=== PATIENT | female | born 1985 | race Hispanic/Latino ===

== ENCOUNTER 2020-01-10 07:28 | Day surgery (SDC) | payer OTHER ==
[~2020-01-10] VITALS: Ht 157.5 cm; Wt 78.5 kg
[2020-01-10] MEDS ORDERED: LR 1,000 ML IV ONE (08:30)
[2020-01-10 08:35] LABS: HEMATOCRIT 32.2 % (36.0-47.0); HEMOGLOBIN 9.6 g/dl (12.0-15.5); MEAN CORPUSCULAR HEMOGLOBIN 21.6 pg (27.0-33.0); MEAN CORPUSCULAR HGB CONC 29.8 g/dl (32.0-36.5); MEAN CORPUSCULAR VOLUME 72.5 fl (80.0-96.0); PLATELET COUNT, AUTOMATED 450 10^3/uL (150-450); RED BLOOD COUNT 4.44 10^6/uL (4.00-5.40); WHITE BLOOD COUNT 10.5 10^3/uL (4.0-10.0)
[2020-01-10] MEDS ORDERED: dexameTHASONE 4 MG/ML 1ML VIAL (J1100 PER 1MG) As Ordered ONE (08:37)
[2020-01-10] MEDS ORDERED: propofoL 200 MG/20 ML VIAL As Ordered ONE (08:37)
[2020-01-10] MEDS ORDERED: ROCURONIUM BROMIDE 50 MG/5 ML VIAL As Ordered ONE (08:37)
[2020-01-10] MEDS ORDERED: LIDOCAINE 2% 100MG/5ML SDV (FOR ANES.) As Ordered ONE (08:37)
[2020-01-10] MEDS ORDERED: MIDAZOLAM INJ 2MG/2ML VIAL (J2250 PER 1MG) As Ordered ONE (08:37)
[2020-01-10] MEDS ORDERED: fentaNYL 100 MCG/2 ML INJECTION (J3010) As Ordered ONE (08:38)
[2020-01-10] MEDS ORDERED: ONDANSETRON 4MG/2ML VIAL As Ordered ONE (08:43)
[2020-01-10] MEDS ORDERED: KETOROLAC 60MG 2ML VIAL As Ordered ONE (08:44)
[2020-01-10 08:56] LABS: BLOOD UREA NITROGEN 14 MG/DL (7-18); CALCIUM LEVEL 8.6 MG/DL (8.5-10.1); CARBON DIOXIDE LEVEL 28 MEQ/L (21-32); CHLORIDE LEVEL 107 MEQ/L (98-107); CREATININE FOR GFR 0.63 MG/DL (0.55-1.30); GLOMERULAR FILTRATION RATE > 60.0 (>60); GLUCOSE, FASTING 103 MG/DL (70-100); HCG, SERUM QUANTITATIVE < 1.0 MIU/ML; POTASSIUM SERUM 3.8 MEQ/L (3.5-5.1); SODIUM LEVEL 142 MEQ/L (136-145)
[2020-01-10] MEDS ORDERED: ACETAMINOPHEN 650 MG SUPP As Ordered ONE (09:14)
[2020-01-10] MEDS ORDERED: BUPIVACAINE HCL 0.5% 10ML VIAL As Ordered ONE (09:14)
[2020-01-10] MEDS ORDERED: SUGAMMADEX SODIUM 500 MG/5 ML VIAL (BRIDION) As Ordered ONE (11:33)
[2020-01-10] MEDS ORDERED: HYDROmorphone HCL 2 MG/ML 1ML VIAL (J1170) As Ordered ONE (11:33)
--- NOTE | 2020-01-10 12:28 | ROOPDOC ---
[facility] Report Of Operation Report of Operation DATE OF PROCEDURE: 01/10/20 PREPROCEDURE DIAGNOSES: chronic pelvic pain, abnormal uterine bleeding POSTPROCEDURE DIAGNOSES: same, pelvic adhesive disease PROCEDURE: laparoscopic lysis of pelvic adhesions, diagnostic hysteroscopy, dilation and curettage SURGEON: Kojo Bates DO PARTITION ASSEMBLER: Carlos Gibbs MD ANESTHESIA: general, local ESTIMATED BLOOD LOSS: <10 mL. COMPLICATIONS: none REMARKS: none PROCEDURE NOTE: The risks, benefits, and alternatives to the procedure were discussed and consent was obtained. The patient was taken to the OR and placed under general anesthesia. A nasogastric tube was used to decompress the stomach. She was positioned in low lithotomy with her arms tucked. The abdomen, vagina, and perineum were prepped and draped in a sterile fashion. A graham catheter was placed in the bladder. A final time out was performed. A weighted speculum was placed in the vagina and the anterior lip of the cervix was grasped with a single tooth tenaculum. The speculum was removed and gloves were changed. The supraumbilical area was injected with 0.25% marcaine approx 4cc and a 5mm incision was made with a scalpel. Using the direct technique a 5mm trochar was placed. The opening pressure was 5mmHg and there was no trauma below the entry site. The area 2cm superior and medial to the left ASIS was identified via transillumination and under direct visualization. 0.25% marcaine approx 4cc was injected and a 5mm incision was made. A 5mm port was then placed under direct visualization. An anatomy survey was performed; normal liver and stomach edge, normal appendix, normal appearing tubes and ovaries, normal appearing uterus. No peritoneal lesions. Bowel globally distended. Left fallopian tube with small adhesion to sigmoid colon. Adhesion to sigmoid was bluntly dissected and released. The operative site was hemostatic. The left port was then removed under direct visualization and remained hemostatic. The pneumoperitoneum was released. The port sites were closed with 3-0 monocryl and secured with steri strips. The weighted speculum was replaced and a 5mm hysteroscope was introduced into the uterus. The endometrium was globally proliferative and the bilateral ostea were clearly visualized. There were no lesions or polyps. The hysteroscope was removed and a dilation and curettage was performed with a sharp curette until 360 deg cry was appreciated. The tenaculum was removed and the puncture sites remained hemostatic. The speculum was removed. They graham was removed. A vaginal sweep was performed. The sponge, lap, and needle counts were correct x2. The patient tolerated the procedure well and there were no complications. KOJO BATES DO Jan 10, 2020 12:28
[2020-01-10] MEDS ORDERED: oxyCODONE 5MG TAB As Ordered ONE (12:54)
[2020-01-10] MEDS ORDERED: LR 1,000 ML IV SCH (13:00)
[2020-01-10] MEDS ORDERED: ONDANSETRON 4MG/2ML VIAL IV PRN (13:00)
[2020-01-10] MEDS ORDERED: fentaNYL 100 MCG/2 ML INJECTION (J3010) IV PRN (13:00)
[2020-01-10] MEDS ORDERED: oxyCODONE 5MG TAB PO PRN (13:00)
[2020-01-10 14:10] VITALS: BP 122/77
== END 2020-01-10 14:20 | disposition home or self-care (01) ==
LOC: M SDC 07:28
PROVIDERS: ATTEND Obstetrics & Gynecology
DX: N91.2 Amenorrhea, unspecified (principal); N93.9 Abnormal uterine and vaginal bleeding, unspecified; R10.2 Pelvic and perineal pain; N73.6 Female pelvic peritoneal adhesions (postinfective)
CPT/HCPCS: 36415; 58558; 58660; 80048; 84702; 85027; 88305; J1100; J1170; J1885; J2250; J2405; J3010

== ENCOUNTER 2022-03-12 06:21 | Day surgery (SDC) | payer OTHER ==
[~2022-03-12] VITALS: Ht 157.5 cm; Wt 78.9 kg
[~2022-03-12 06:21] MED LIST: FERR325T81 PO; VITA500C24 PO; ceFAZolin SOD 2 GM in IV 1 EA IV ONE
[2022-03-12 06:49] LABS: HEMATOCRIT 35.8 % (36.0-47.0); HEMOGLOBIN 10.3 g/dl (12.0-15.5); MEAN CORPUSCULAR HGB CONC 28.8 g/dl (32.0-36.5); MEAN CORPUSCULAR VOLUME 73.1 fl (80.0-96.0); PLATELET COUNT, AUTOMATED 411 10^3/uL (150-450); WHITE BLOOD COUNT 10.2 10^3/uL (4.0-10.0)
[2022-03-12] MEDS ORDERED: LR 1,000 ML IV SCH ×3 (06:50→14:40)
[2022-03-12] MEDS ORDERED: BUPIVACAINE HCL 0.5% 30ML VIAL As Ordered ONE (07:15)
[2022-03-12] MEDS ORDERED: ROCURONIUM BROMIDE 50 MG/5 ML VIAL As Ordered ONE ×2 (07:18→08:15)
[2022-03-12] MEDS ORDERED: propofoL 200 MG/20 ML VIAL As Ordered ONE (07:18)
[2022-03-12] MEDS ORDERED: LIDOCAINE 2% 100MG/5ML SDV (FOR ANES.) As Ordered ONE (07:18)
[2022-03-12] MEDS ORDERED: MIDAZOLAM INJ 2MG/2ML VIAL (J2250 PER 1MG) As Ordered ONE (07:19)
[2022-03-12] MEDS ORDERED: fentaNYL 100 MCG/2 ML INJECTION As Ordered ONE (07:19)
[2022-03-12] MEDS ORDERED: BUPIVACAINE LIPOSOME/PF 1.3% 20ML VIAL (13.3MG/ML)(EXPAREL) As Ordered ONE (07:49)
[2022-03-12] MEDS ORDERED: BUPIVACAINE HCL 0.25% 10ML VIAL As Ordered ONE (07:49)
[2022-03-12] MEDS ORDERED: dexameTHASONE 4 MG/ML 1ML VIAL (J1100 PER 1MG) As Ordered ONE (07:51)
[2022-03-12] MEDS ORDERED: HYDROmorphone HCL 2MG/ML 1ML VIAL As Ordered ONE (08:04)
[2022-03-12] MEDS ORDERED: ACETAMINOPHEN *IV* 1,000 MG IV ONE ×2 (08:05)
[2022-03-12] MEDS ORDERED: PHENYLephrine 500MCG 5ML (100MCG/ML) SYRINGE As Ordered ONE (08:05)
[2022-03-12] MEDS ORDERED: ACETAMINOPHEN 1000MG 100ML IV BTL (OFIRMEV) (J0131 PER 10MG) As Ordered ONE (08:09)
[2022-03-12] MEDS ORDERED: ONDANSETRON 4MG 2ML VIAL As Ordered ONE (08:42)
[2022-03-12] MEDS ORDERED: SUGAMMADEX SODIUM 500 MG/5 ML VIAL (BRIDION) As Ordered ONE (08:42)
[2022-03-12] MEDS ORDERED: KETOROLAC 60MG 2ML VIAL As Ordered ONE (08:42)
[2022-03-12] MEDS ORDERED: METOCLOPRAMIDE INJ 10MG/2ML VIAL (J2765 PER 1) As Ordered ONE (08:42)
[2022-03-12] MEDS ORDERED: ONDANSETRON 4MG 2ML VIAL IV PRN (11:30)
[2022-03-12] MEDS ORDERED: HYDROMORPHONE HCL 0.5 MG/ 0.5 ML SYRINGE (J1170 PER 1) IV PRN (11:30)
[2022-03-12] MEDS ORDERED: fentaNYL 100 MCG/2 ML INJECTION IV PRN (11:30)
[2022-03-12] MEDS ORDERED: oxyCODONE 5MG TAB PO PRN ×3 (11:30→14:45)
[2022-03-12 14:15] VITALS: BP 134/72
[2022-03-12 14:45] VITALS: BP 118/63
[2022-03-12 15:15] VITALS: BP 132/69
[2022-03-12 16:15] VITALS: BP 118/62
[2022-03-12 17:15] VITALS: BP 116/56
== END 2022-03-12 18:40 | disposition home or self-care (01) ==
LOC: M SDC 06:21 → M OBS 14:10 → M SDC 18:40
PROVIDERS: ATTEND Obstetrics & Gynecology
DX: N72 Inflammatory disease of cervix uteri (principal); N80.00 Endometriosis of the uterus, unspecified; D25.1 Intramural leiomyoma of uterus; D25.2 Subserosal leiomyoma of uterus; D64.9 Anemia, unspecified
CPT/HCPCS: 36415; 57283; 58571; 81025; 85027; 86850; 86900; 86901; 88307; C9290; J0131; J0690; J1100; J1170; J1885; J2250; J2370; J2405; J2765; J3010